=== PATIENT | male | born 1945 | race Caucasian/White ===

== ENCOUNTER 2018-09-21 09:46 | Inpatient (IN) | payer MEDICARE, OTHER ==
[~2018-09-21] VITALS: Ht 180.3 cm; Wt 95.0 kg
[2018-10-30] VITALS (11 sets, daily range): BP systolic 121–138; BP diastolic 64–71; PULSE 80–95; TEMP 97.4–98.2
[2018-10-30] MEDS ORDERED: PRINIVIL40 MG PO (05:52)
[2018-10-30] MEDS ORDERED: MOBIC15 MG PO (05:52)
[2018-10-30] MEDS ORDERED: ADALAT CC30 MG PO (05:53)
[2018-10-30] MEDS ORDERED: PRILOSEC 20MG20 MG PO (06:18)
--- NOTE | 2018-10-30 19:15 | NUR ---
Patient has done well post op today. Eras protocol followed. Post op vitals stable on room air. Patient up and ambulated the halls & did well. Tolerating clears, no n/v. Robotic lap site edges well approximated, open to air. PA drain to compression. IVf to hand per orders. Patient urine outout has been marginal. po intake encouraged. Bedside report to RYLAN Cortes
--- NOTE | 2018-10-30 20:45 | NUR ---
Pt. laying in bed at this time. Pt. is A&OX3, assessment complete. IV to lt. hand patent, IV fluids infusing per orders. Pt. denies pain or other needs, call light within reach.
[2018-10-31 03:46] VITALS: BP 127/59; PULSE 85; TEMP 98
[2018-10-31 07:30] LABS: BASO % 0.2 % (0.0-2.0); EOS % 0.1 % (0-4.0); GRAN # 16.4 (1.4-6.5); GRAN % 85.1 % (42.2-75.2); HEMOGLOBIN 11.6 g/dl (13.5-18.0); LYMPH # 1.3 (1.2-3.4); LYMPH % 6.7 % (20.0-51.0); MEAN CELL VOLUME 93 fl (80.0-100.0); MEAN CORPUSCULAR HEMOGLOBIN 30 pg (27.0-31.0); MEAN CORPUSCULAR HGB CONC 33 g/dl (33.0-37.0); MEAN PLATELET VOLUME 11.2 fl (7.4-10.4); MONO # 1.4 (0.1-0.6); MONO % 7.4 % (1.7-9.3); PLATELET COUNT 183 K/mm3 (130-400); RED BLOOD COUNT 3.84 M/mm3 (4.20-5.60); REDCELL DISTRIBUTION WIDTH-CV 12.8 % (11.5-14.5)
[2018-10-31 07:41] LABS: HEMATOCRIT 35.6 % (42.0-52.0)
[2018-10-31 07:47] LABS: CALCIUM 8.6 mg/dL (8.4-10.2); CREATININE, serum 1.77 (0.66-1.25); POTASSIUM 5.3 mmol/L (3.4-5.0)
[2018-10-31 08:05] VITALS: BP 125/58; PULSE 80; TEMP 98.7
--- NOTE | 2018-10-31 10:13 | NUR ---
Patient doing well. Patient ambulated halls stand by assist. rounded. Order obtained. Iv to INT. Breakfast ordered & he tolerated well without nausea. Vishal drain remains to compression. Lap site edges well approximated. Hartley to DD with adequate urine output. Will start hartley teaching.
--- NOTE | 2018-10-31 10:15 | NUR ---
MONICO met with the patient and his son Fantasma to discuss a discharge plan. The pt lives in [place] with his , Rosy. The pt has walker and cane available but does not need them and reports independence with ADLs. The pt's PCP is Dr. Alarcon and pt receives his medications at [facility] in [place] with no difficulties. The pt does not have advanced directives in the EMR and reported he does have a DPOA-HC form at home and is working on it. The pt plans to return home upon discharge. There are no additional needs at this time.
--- NOTE | 2018-10-31 10:53 | NUR ---
Initial visit; Patient thanked [employer] Administrator for looking in on him and offering Spiritual Care.
[2018-10-31 12:02] VITALS: BP 144/65; PULSE 81; TEMP 98.2
--- NOTE | 2018-10-31 14:12 | NUR ---
Patient continues to do well today. Family at bedside. Pain continues to be managed per ERAS protocol. Tien avsquez DD. Will monitor
[2018-10-31 16:17] VITALS: BP 129/65; PULSE 85
--- NOTE | 2018-10-31 17:57 | NUR ---
Patient has minimal output from PA drain. Pa drain Dc per orders. patient up to the chair for dinner & plans to ambulate halls after dinner. He continues to have great urine output from hartley. Pain manged per MAHOGANY
--- NOTE | 2018-10-31 19:06 | NUR ---
Patient ambulated halls and did well. Tolerated dinner. Bedside report to Madison Pruitt
--- NOTE | 2018-10-31 19:18 | NUR ---
Report received from RYLAN Torrez.
[2018-10-31 20:23] VITALS: BP 130/73; PULSE 86; TEMP 98
[2018-11-01 00:46] VITALS: BP 122/65; PULSE 78; TEMP 97.5
--- NOTE | 2018-11-01 03:27 | NUR ---
Patient has rested well so far tonight. Chauhan catheter present and draining clear yellow urine. Denies any needs. Will continue to monitor patient.
[2018-11-01 04:18] VITALS: BP 117/66; PULSE 71; TEMP 97.9
[2018-11-01 08:00] VITALS: BP 129/65; PULSE 87; TEMP 98.1
--- NOTE | 2018-11-01 08:00 | NUR ---
PATIENT IS A&O. VSS. REPORTS MINIMAL PAIN. INDEPENDENT IN ROOM. GAIT STEADY. ZELAYA TO DEPENDENT DRAINAGE WITH MOD AMOUNTS OF CLEAR YELLOW URINE NOTED, NO CLOTS. LEFT HAND IV TO INT. PATIENT EAT/DRINKING WELL. NO C/O N/V. ABDOMINAL LAP SITES X5 CD&I. PREVIOUS PA DRAIN SITE DRESSING IS CD&I WITH GAUZE & TEGA. PATIENT EDUCATED ABOUT STRAWS AND CARBINATION. PATIENT PASSING GAS. HEAD TO TOE ASSESSMENT WNL. BREAKFAST TRAY ORDERED. AM MEDS GIVEN.
[2018-11-01 11:54] VITALS: BP 149/75; PULSE 89; TEMP 98.2
--- NOTE | 2018-11-01 12:55 | NUR ---
PATIENT DISCHARGING HOME VIA WHEELCHAIR TO PERSONAL VEHICLE WITH AND SON. GAVE DISCHARGE INSTRUCTIONS, CATH CARE & LEG BAG TEACHING, CATH SUPPLIES, PRESCRIPTIONS AND FOLLOW UP APT. ANSWERED ALL QUESTIONS/CONCERNS. SENT HOME PERSONAL BELONGINGS. DC'D LEFT HAND IV AND COVERED WITH GAUZE & BANDAID.
== END 2018-11-01 12:55 | disposition home or self-care (01) | DRG 708 ==
LOC: INPTSU 10-30 05:41 → SURG 10-30 07:30
PROVIDERS: ADMIT Urology
PROC: 07TC4ZZ Resection of Pelvis Lymphatic, Percutaneous Endoscopic Approach (ICD-10-PCS; 2018-10-30)
PROC: 8E0W4CZ Robotic Assisted Procedure of Trunk Region, Percutaneous Endoscopic Approach (ICD-10-PCS; 2018-10-30)
PROC: 0VT04ZZ Resection of Prostate, Percutaneous Endoscopic Approach (ICD-10-PCS; principal; 2018-10-30 07:30)
DX: C61 Malignant neoplasm of prostate (principal); I10 Essential (primary) hypertension
CPT/HCPCS: A9284; J0690; J1100; J1885; J2370; J2405; J2704; J3010; J7120

== ENCOUNTER 2022-01-21 10:00 | Day surgery (SDC) | payer MEDICARE, OTHER ==
[~2022-01-21] VITALS: Ht 180.3 cm; Wt 95.9 kg
[~2022-01-21 10:00] MED LIST: ADALAT CC30 MG PO; MOBIC15 MG PO; PRILOSEC 20MG20 MG PO; PRINIVIL40 MG PO
[2022-01-21 13:30] VITALS: BP 117/65; PULSE 79
[2022-01-21 13:45] VITALS: BP 128/74; PULSE 76
[2022-01-21 14:00] VITALS: BP 127/76; PULSE 78
--- NOTE | 2022-01-21 14:18 | NUR ---
1330 Pt returns from endo procedure via cart and RN assist to GI Haakon 2. Pt ambulates from cart to recliner with RN assist. Monitors on and alarms set. Call light within reach. Report received from RYLAN Calles. Pt alert and oriented. Pt requests muffin and water. Pt denies any pain or nausea. 1345 Pt taking food and drink and food well. 1404 Discharge instructions given to pt and pt's . All questions answered to their satisfaction. Handed to pt are a thank you card and discharge information. 1418 Pt transferred out of the hospital via wheelchair and this RN assist, to private vehicle driven by pt's .
[2022-01-21 14:30] VITALS: BP 136/76; PULSE 86; TEMP 97.8
== END 2022-01-21 14:18 | disposition home or self-care (01) ==
LOC: SDCO 10:00
DX: Z12.11 Encounter for screening for malignant neoplasm of colon (principal); D12.3 Benign neoplasm of transverse colon; K57.30 Diverticulosis of large intestine without perforation or abscess without bleeding; I10 Essential (primary) hypertension; K21.9 Gastro-esophageal reflux disease without esophagitis
CPT/HCPCS: J2704; J7030